=== PATIENT | female | born 1965 | race African-American/Black ===

== ENCOUNTER 2024-07-26 16:47 | Emergency (ER) | payer BC, SELFPAY ==
--- NOTE | ~2024-07-26 | CT_ITS ---
EXAMINATION: CT HEAD WITHOUT CONTRAST CLINICAL INFORMATION: Headache. On Lovenox. Rule out bleed. COMPARISON: None available. TECHNIQUE: Contiguous axial imaging was performed from the skull base to vertex without intravenous administration of contrast. This CT examination was performed using dose optimization techniques as appropriate, variously including the following: *Automated exposure control *Adjustment of mA and/or kV according to patient size (this includes techniques or standardized protocols for targeted exams where dose is matched to indication/reason for exam; i.e. extremities or head) *Use of iterative reconstruction technique DLP: 709 FINDINGS: There is no acute intra-axial, extra-axial bleed, masses or midline shift. There is no acute infarction evolution. There is no edema. Dense midline dural calcification is noted. The lateral ventricles are symmetrical in size and configuration without enlargement. Bone windows reveal no calvarial abnormality. There is no scalp soft tissue abnormality. Mild deformity of the left lamina papyracea likely from old injury is noted. The paranasal sinuses and mastoid air cells are well-aerated. CT/CT Head for ICH IMPRESSION: No acute intracranial process seen.. Electronically signed by: Lewis Lee MD 07/27/2024 04:00 PM EDT
--- NOTE | ~2024-07-26 | NM_ITS ---
EXAMINATION: NM LUNG PERFUSION HISTORY: CP, SOB, R ankle surgery 07/15 ?PE. TECHNIQUE: A pulmonary perfusion scan was performed following intravenous administration of 4.0 mCi technetium 99m-MAA. Images were obtained in multiple projections. COMPARISON: Correlation is made with AP and lateral views of the chest dated 07/26/2024. FINDINGS: There are tiny subsegmental perfusion defects involving the superior segments of both lower lobes. No segmental or large segmental perfusion defects are identified. Findings are consistent with a very low probability for pulmonary emboli. NM/NM pul perfusion IMPRESSION: Very low probability for pulmonary emboli. Electronically signed by: Jayjay Rothman MD 07/27/2024 10:10 AM EDT
--- NOTE | ~2024-07-26 | XR_ITS ---
CLINICAL HISTORY: cp, SOB 2 view chest x-ray Comparison: None Findings: Lungs are clear without acute infiltrates. No pneumothorax. Heart size normal. No acute bony abnormalities. Impression: No acute processes This document has been electronically signed by: Stanislaw Rodas MD on 07/27/2024 00:20:00
[2024-07-26 16:52] VITALS: BP 160/64; PULSE 108; RESP 18; TEMP 36.8; O2SAT 99; BMI 29.8
--- NOTE | 2024-07-26 16:53 | ED.GENADULT ---
HPI - General Adult General Chief complaint: General Medical Stated complaint: headache,chest heaviness postop 07/21 Time Seen by Provider: 07/26/24 21:09 Source: patient Mode of arrival: ambulatory Limitations: no limitations History of Present Illness ED Provider: india riley np HPI narrative: patient is a 59-year-old female With past medical history of type 2 diabetes, tachycardia, surgeon deficiency, GERD, fibromyalgia who presents emergency department for evaluation. On 07/15/2024 she underwent ?ORIF 3 broken bones with pins and plates at [facility] (records pending). she has traveled locally she has been time with her son. She had a telehealth appointment with her surgeon today who advised that she come to the emergency department for evaluation of a blood clot. She reports that yesterday she began having a bilateral frontal headache with bilateral eye pain that is brought on when she is looking at her phone or the television. She does admit to a remote history of migraine headaches. She tried meloxicam for this but got no relief. She ultimately ended up taking her oxycodone and was able to sleep. However in the evening she was still feeling nauseous and with the same headache, she additionally was experiencing diffuse anterior chest pain described as a heaviness. This was felt while sitting and resting and stayed consistent throughout the day described as annoying in her shortness breath is feeling generally winded. she states she has been compliant with Lovenox 40 mg daily since her surgery. She denies overt worsening of pain to the right lower extremity/ ankle, denies any tightness or pressure like sensation beneath the splint that she is currently wearing. No numbness tingling or cold sensation to the foot. Related Data Home Medications ?Medication ?Instructions ?Recorded ?Confirmed acetaminophen 500 mg tablet 1,000 mg PO Q6H PRN Pain 07/27/24 07/27/24 atorvastatin 20 mg tablet 20 mg PO DAILY 07/27/24 07/27/24 diltiazem HCl 120 mg 120 mg PO DAILY 07/27/24 07/27/24 capsule,extended release 24 hr, controlled (DILT-XR) enoxaparin 40 mg/0.4 mL 40 mg subcut DAILY 07/27/24 07/27/24 subcutaneous syringe famotidine 20 mg tablet 20 mg PO BID 07/27/24 07/27/24 insulin glargine 100 unit/mL (3 30 unit subcut BEDTIME 07/27/24 07/27/24 mL) subcutaneous pen (Basaglar KwikPen U-100 Insulin) oxycodone 5 mg tablet 5 mg PO Q6-8H PRN pain 07/27/24 07/27/24 pantoprazole 40 mg tablet,delayed 40 mg PO DAILY@0630 07/27/24 07/27/24 release polyethylene glycol 3350 17 17 g PO DAILY PRN Constipation 07/27/24 07/27/24 gram/dose oral powder semaglutide 0.25 mg or 0.5 mg (2 0.5 mg subcut MO 07/27/24 07/27/24 mg/3 mL) subcutaneous pen injector (Ozempic) sennosides 8.6 mg tablet (senna) 8.6 mg PO BEDTIME 07/27/24 07/27/24 sertraline 50 mg tablet 50 mg PO DAILY 07/27/24 07/27/24 Previous Rx's ?Medication ?Instructions ?Recorded apixaban 5 mg (74 tabs) tablets in 5 mg PO BID #74 ea 07/27/24 a dose pack ([employer] DVT-PE Treat 30D Start) oxycodone 5 mg tablet 5 mg PO Q4H PRN pain #20 tabs 07/27/24 Allergies Allergy/AdvReac Type Severity Reaction Status Date / Time glipizide Allergy Gastrointestinal Verified 07/26/24 17:01 Upset Iodinated Contrast Media Allergy Difficulty Verified 07/26/24 17:01 [Contrast Dye] Breathing latex Allergy Rash Verified 07/26/24 17:01 meperidine [From Demerol] Allergy Gastrointestinal Verified 07/26/24 17:01 Upset metformin Allergy Gastrointestinal Verified 07/26/24 17:01 Upset Review of Systems Review of Systems: Yes all other systems are reviewed and are negative PMFSH Past Medical History Attestation statement: The following information was validated with the patient. Source: old records reviewed Physical Exam ED Vital Signs: Vital Signs - 24 hr 07/26/24 19:39 07/27/24 00:15 07/27/24 04:46 Temperature 98.5 F 98.0 F 98.4 F Pulse Rate 81 89 87 Respiratory Rate 19 16 21 H Blood Pressure 158/82 H 147/77 H 132/74 Pulse Oximetry 98 97 99 Oxygen Delivery Method Room Air Room Air Room Air 07/27/24 08:31 07/27/24 10:10 07/27/24 17:03 Temperature 98.2 F 98.8 F 97.4 F Pulse Rate 78 76 83 Respiratory Rate 16 18 14 Blood Pressure 133/69 141/64 H 136/70 Pulse Oximetry 100 98 99 Oxygen Delivery Method Room Air Room Air Room Air 07/27/24 17:53 Temperature 97.4 F Pulse Rate 98 Respiratory Rate 16 Blood Pressure 138/78 Pulse Oximetry 97 Oxygen Delivery Method Room Air BMI result Body Mass Index 29.8 Appearance: Alert.?Oriented to person, place and time. No acute distress.?Normal affect. Eyes: Pupils equal, round and reactive to light.? EOMI. No nystagmus. ENT: Pharynx normal.?? Neck: Normal inspection.? Neck supple.?? Full range of motion. CVS: Heart sounds normal. Normal heart rate and rhythm.? Pulses normal.?? Respiratory: No respiratory distress.? Lung sounds clear to auscultation bilaterally?? Abdomen: Soft and non-tender. Normoactive bowel sounds. Skin: Skin warm and dry.? Normal skin color.? Extremities: No lower extremity edema.? CMS is intact to the digits of the right toe. Splint is intact. No pain upon palpation to the proximal right calf. Neuro: Moves all extremities spontaneously. Sensation intact bilaterally. CN II-XII intact. No focal neuro deficits. Ambulates with normal steady gait. Course Course Course Narrative: This is an RME: Additional HPI, ROS, PE not included below will be deferred to primary provider. RME assessment and note performed by: Natalya Whitlock PA-C This is a [id number]-female, with a hx of diabetes type 2 on insulin, tachycardia, serotonin deficiency, GERD, fibromyalgia, who presents to the ER accompanied by her son with concerns for chest heaviness/discomfort and SOB on exertion and headache which started yesterday. She states that she had a telemed visit with her orthopedic surgeon today and was told to come to the ED to be evaluated. On July 15 she had surgery on her right ankle in [facility]. Currently on Lovenox due to surgery. Plan: Labs, viral swabs, ekg, further ER eval needed. Reevaluation(s) Reevaluation #1: 07/28/2027 at 17:35 hours, Dr. Britton Nagel's note: Physician observation ended at 17:35 hours. I assumed care of this patient from my colleague, Dr. Keri Chris at 07:00 hours. 59-year-old female with past medical history of type 2 diabetes, tachycardia, surgeon deficiency, GERD, fibromyalgia, beta thalassemia who presents emergency department for evaluation chest pain and dyspnea on exertion. The patient had a right ankle fracture repaired on 07/15/[address] [facility]. The patient's son lives here in the [facility] therefore she came to [place] to stay with her son so that he can help her recover. The patient is receiving Lovenox subQ 40 mg daily as prophylaxis for DVT. Patient presented for evaluation of bilateral frontal headaches, she has a remote history of migraines. Patient was taking meloxicam and oxycodone with no relief of her headache. Patient states she was experiencing intermittent chest heaviness. She denied shortness of breath at rest but she did develop significant dyspnea on exertion using her knee scooter which was new. She states she had chills but no fever. Patient has a contrast allergy therefore she could not get a CT pulmonary angiogram was kept in the emergency department overnight for a ventilation/perfusion scan. Patient's WBC was normal, patient has a microcytic anemia which is consistent with a beta thalassemia. Patient's D-dimer was elevated. I did review the radiologist's findings and impression below. EXAMINATION: NM LUNG PERFUSION FINDINGS: There are tiny subsegmental perfusion defects involving the superior segments of both lower lobes. No segmental or large segmental perfusion defects are identified. Findings are consistent with a very low probability for pulmonary emboli. IMPRESSION: Very low probability for pulmonary emboli. Electronically signed by: Jayjay Rothman MD 07/27/2024 Given the patient's recent surgery, elevated D-dimer, chest pain and new dyspnea on exertion, this patient is at very high-risk for PE and a ?very low probability?interpretation of the perfusion scan does not sufficiently rule out pulmonary embolism. Also, the radiologist did note tiny sub segmental perfusion defects involving the superior segment of both lower lobes which could represent very small pulmonary emboli. Given the substantial risk of harm of a large pulmonary embolism, I did discuss treatment with Ted with the patient and she agrees with this plan. Patient was advised to stop taking her Lovenox and to avoid NSAIDs including meloxicam. She was given a prescription for Eliquis 10 mg b.i.d. for 7 days then 5 mg b.i.d. to complete a 1 month course. She was given her 1st dose of Eliquis 10 mg orally here in the emergency department. I told the patient that she should not stop this medication until either a paper final inspector or a fashion consultant selling advises her to do so. Patient was also running out of her oxycodone for her fracture pain therefore she was given a prescription for oxycodone 5 mg every 4 hours as needed for pain dispense 20 tablets. Patient had increased pain prior to discharge and was given oxycodone 5 mg orally. Patient was given printed and verbal instructions and discharged home. The patient did have a severe headache on presentation, she does have a history of migraines, given the fact that she was on Lovenox I wanted to exclude an intracranial bleed prior to starting Eliquis. CT scan of the brain without IV contrast was obtained and there was no evidence for intracranial bleeding I did review the radiology reading below: EXAMINATION: CT HEAD WITHOUT CONTRAST CLINICAL INFORMATION: Headache. On Lovenox. Rule out bleed. COMPARISON: None available. FINDINGS: There is no acute intra-axial, extra-axial bleed, masses or midline shift. There is no acute infarction evolution. There is no edema. Dense midline dural calcification is noted. The lateral ventricles are symmetrical in size and configuration without enlargement. Bone windows reveal no calvarial abnormality. There is no scalp soft tissue abnormality. Mild deformity of the left lamina papyracea likely from old injury is noted. The paranasal sinuses and mastoid air cells are well-aerated. IMPRESSION: No acute intracranial process seen.. Electronically signed by: Lewis Lee MD 07/27/2024 04:00 PM EDT Medications Administered Discontinued Medications Generic Name Dose Route Start Last Admin Trade Name Freq PRN Reason Stop Dose Admin Apixaban 10 mg 07/27/24 17:10 07/27/24 17:20 Apixaban 5 Mg Tablet PO 07/27/24 17:11 10 mg ONCE ONE Administration Diphenhydramine HCl 25 mg 07/26/24 22:03 07/26/24 22:30 Diphenhydramine Hcl 50 Mg/Ml Vial IVPUSH 07/26/24 22:04 25 mg ONCE ONE Administration Enoxaparin Sodium 80 mg 07/26/24 23:16 07/26/24 23:45 Enoxaparin Sodium 80 Mg/0.8 Ml Syringe 1 mg/kg (80 mg) 07/26/24 23:17 80 mg SUBCUT Administration ONCE ONE Sodium Chloride 1,000 mls @ 999 mls/hr 07/26/24 22:15 07/27/24 00:13 Ns IV 07/26/24 23:15 Infused .Q1H1M GONZALEZ Infusion Ketorolac Tromethamine 15 mg 07/26/24 22:03 07/26/24 22:31 Ketorolac Tromethamine 15 Mg/Ml Vial IVPUSH 07/26/24 22:04 15 mg ONCE ONE Administration Metoclopramide HCl 10 mg 07/26/24 22:03 07/26/24 22:30 Metoclopramide Hcl 10 Mg/2 Ml Vial IVPUSH 07/26/24 22:04 10 mg ONCE ONE Administration Oxycodone HCl 5 mg 07/27/24 04:42 07/27/24 04:47 Oxycodone Hcl Immed Release 5 Mg Tablet PO 07/27/24 04:43 5 mg ONCE ONE Administration Oxycodone HCl 5 mg 07/27/24 13:11 07/27/24 13:16 Oxycodone Hcl Immed Release 5 Mg Tablet PO 07/27/24 13:12 5 mg ONCE STA Administration Oxycodone HCl 5 mg 07/27/24 17:45 07/27/24 17:53 Oxycodone Hcl Immed Release 5 Mg Tablet PO 07/27/24 17:46 5 mg ONCE STA Administration Medical Decision Making Medical Decision Making [facility] Narrative: patient is a 59-year-old female With past medical history of type 2 diabetes, tachycardia, surgeon deficiency, GERD, fibromyalgia Who presents emergency department for evaluation of headache chest pain and shortness of breath as per HPI onset 2 days ago. Had recent right ankle surgery 07/15/2024. On evaluation her history and physical exam regarding her headache or most concerning for migraine-type headache with photophobia, no focal neurological deficits, NIH stroke scale of 0. She will receive a migraine cocktail for this. Regarding her chest heaviness and shortness of breath, she has an elevated D- dimer at 567, in the setting of recent ankle surgery, concern for potential pulmonary embolism unfortunately she has an allergy to contrast dye therefore CT angiogram can not be obtained. She last took her Lovenox 40 mg this morning, planning for therapeutic dosing at this time patient will receive Lovenox 80 mg subcutaneous and obtain a V/Q scan in the morning with service is available. Currently she is not hypoxic, not tachypneic, but did arrived to emergency department mildly tachycardic. Serum labs reveal CBC without leukocytosis, anemia, or thrombocytopenia. No electrolyte derangement. No LINETTE. high sensitive troponin within normal range , EKG revealing normal sinus rhythm with ventricular rate of 99, QTC 449, no ST-elevation, not consistent with ACS. Viral serologies negative. Differential Diagnosis Differential Diagnoses: The differential diagnosis associated with the presentation includes ( see narrative above) Admission/Observation Consideration of admission/observation: Escalation of care including admission/observation considered Placed in physician observation at 22:00 on 07/26/2024 pending V/Q scan and disposition. Lab Data MDM Lab Attestation statement: I reviewed the patient's lab results. ( see narrative above) 07/26/24 17:26 07/26/24 17:26 Labs: Lab Results 07/26/24 07/27/24 07/27/24 Range/Units 17:26 10:11 16:35 WBC 7.6 (4.8-10.8) X10*3/uL RBC 5.32 (4.20-5.50) X10*6/uL Hgb 12.1 (12.0-16.0) g/dl Hct 39.7 (37.0-47.0) % MCV 74.6 L (80.0-98.0) fL MCH 22.7 L (27.0-33.0) pg MCHC 30.5 L (31.0-35.0) g/dl RDW 15.7 (11.0-16.0) % Plt Count 358 (160-400) X10*3/uL MPV 9.9 (9.4-12.3) fL Immature Gran % (Auto) 0.4 (0.0-0.4) % Neut % (Auto) 45.9 (45-73) % Lymph % (Auto) 47.1 H (20-40) % [place] % (Auto) 5.5 (2-11) % Eos % (Auto) 0.7 (0-4) % Baso % (Auto) 0.4 (0-2) % Lymph # (Auto) 3.6 (1.2-4.9) X10*3/uL [place] # (Auto) 0.4 (0.1-1.2) X10*3/uL Eos # (Auto) 0.1 (0.0-0.4) X10*3/uL Baso # (Auto) 0.0 (0.0-0.2) X10*3/uL Abs Immat Gran (auto) 0.03 (0.00-0.03) X10*3/uL Absolute Neuts (auto) 3.5 (2.0-8.3) x10*3/uL Absolute Nucleated RBC 0.020 H (0.0-0.012) X10*3/uL Nucleated RBC % (auto) 0.3 H (0.0-0.2) /100WBC PT 13.5 H (10.9-12.4) SEC INR 1.2 H (0.9-1.1) D-Dimer High Sensitivty 567 NG/ML Sodium 141 (135-145) mmol/L Potassium 3.6 (3.3-5.1) mmol/L Chloride 108 (96-108) mmol/L Carbon Dioxide 25 (22-29) mmol/L Anion Gap 12 (12-20) BUN 13 (9-16) mg/dL Creatinine 0.76 (0.5-1.4) mg/dL Estim Creat Clear Calc 76.9 Estimated GFR > 60 POC Glucose 94 101 (60-115) mg/dL Random Glucose 167 H (60-115) mg/dL Calcium 9.5 (8.4-10.2) mg/dL Magnesium 1.7 (1.6-2.6) mg/dL Total Bilirubin 0.5 (0.0-1.0) mg/dL Direct Bilirubin 0.2 (0.0-0.5) mg/dL AST 31 (5-31) U/L ALT 112 H (0-31) U/L Alkaline Phosphatase 172 H (39-117) U/L Troponin I High Sens 2.9 (<3.5-17.0) ng/L Total Protein 7.5 (6.5-8.0) g/dL Albumin 4.1 (3.5-5.0) g/dL Lipase 25 (8-78) U/L Influenza Type A (PCR) NEGATIVE (Negative) Influenza Type B (PCR) NEGATIVE (Negative) RSV RNA Qual (PCR) NEGATIVE (Negative) SARS-CoV-2 RNA (RT-PCR) NEGATIVE (Negative) Radiology Impression Discussion of test interpretation with radiology: I have reviewed the radiologist's reading. Independent Historian Clinical information obtained from an independent historian. History obtained from or confirmed by: Other ( son) Tests considered The following testing was considered but not selected: see narrative above Chronic Conditions Patient?s care impacted by: Other ( see narrative above) Critical Care Time Critical Care Time Critical Care Time: Yes Total Critical Care Time: 40 Attestation: I personally attest to this critical care time spent taking care of the patient exclusive of all other billable procedures was approximately 40 minutes including initial evaluation of patient, ordering tests, x-ray interpretation, EKG interpretation, medical consultation, documentation, re-evaluation. Discharge Plan Discharge Clinical Impression: Pulmonary embolism, Acute dyspnea Patient Disposition: Home, Self-Care Instructions: Pulmonary Embolism (ED) Additional Instructions: Your complete blood count revealed a normal hemoglobin and hematocrit with a low MCV. This is probably more consistent with beta thalassemia and not polycythemia vera and does not put you at increased risk for blood clots.. Your D-dimer (a marker of forming blood clots and breaking up blood clots) was elevated at 567 with our normal range being less than 230. Your comprehensive metabolic panel was unremarkable. Your chest x-ray revealed no significant abnormalities to explain your shortness of breath with exertion. The CT scan of your brain did not reveal any bleeding in your brain which is reassuring. Your headache was most likely caused by a migraine. Your pulmonary perfusion scan revealed tiny subsegmental perfusion defects involving the superior segment of both lower lobes of your lungs and the radiologist determined that this was a very low probability for pulmonary embolism. Given your recent surgery, your elevated D-dimer and your new shortness of breath with exertion, you are at high-risk for pulmonary embolism and a ?very low probability ?perfusion scan does not excluded the possibility of a pulmonary embolism. Given the high-risk potential of blood clots to your lung causing significant harm to you, I am starting you on Eliquis, please follow the directions on the prescribed as discussed. You need to remain on Eliquis until a paper final inspector or fashion consultant selling tell you you can stop this medication. Stop the Lovenox Avoid NSAIDs (Advil, Motrin, Alleve, ibuprofen, naproxen, meloxicam, aspirin) while you are taking Eliquis. Take Tylenol (acetaminophen) 500 mg pills, 2 pills every 4-6 hours as needed for pain. For pain not relieved by Tylenol take oxycodone 5 mg pills, 1 pill every 4 hours as needed for pain. Do not drive or work while taking this medication since they can cause sleepiness. Oxycodone is a narcotic medication that can be addicting. If you are concerned about addiction you can ask the pharmacist for less pills or do not get this prescription filled. Follow-up with your doctor in 2 days. Please return to the emergency department if your symptoms get worse or if you develop any symptoms that are concerning to you. Prescriptions: New Eliquis DVT-PE Treat 30D Start 5 mg (74 tabs) tablets,dose pack 5 mg PO BID Qty: 74 0RF oxycodone 5 mg tablet 5 mg PO Q4H PRN (Reason: pain) Qty: 20 0RF Rx Instructions: Partial Fill upon patient request. No Action sennosides [senna] 8.6 mg tablet 8.6 mg PO BEDTIME acetaminophen 500 mg tablet 1,000 mg PO Q6H PRN (Reason: Pain) famotidine 20 mg tablet 20 mg PO BID pantoprazole 40 mg tablet,delayed release (DR/EC) 40 mg PO DAILY@0630 diltiazem HCl [DILT-XR] 120 mg capsule,ext.rel 24h degradable 120 mg PO DAILY polyethylene glycol 3350 17 gram/dose powder 17 g PO DAILY PRN (Reason: Constipation) oxycodone 5 mg tablet 5 mg PO Q6-8H PRN (Reason: pain) enoxaparin 40 mg/0.4 mL syringe 40 mg subcut DAILY Ozempic 0.25 mg or 0.5 mg (2 mg/3 mL) pen injector 0.5 mg subcut MO atorvastatin 20 mg tablet 20 mg PO DAILY sertraline 50 mg tablet 50 mg PO DAILY insulin glargine [Basaglar KwikPen U-100 Insulin] 100 unit/mL (3 mL) insulin pen 30 unit subcut BEDTIME Interventions: ED Discharge Assessment Last Done: 07/27/24 17:53 Discharge Date/Time: 07/27/24 18:16 Print Language: Danish
--- NOTE | 2024-07-26 17:03 | ECG_ITS ---
Test Reason : cp Blood Pressure : */* mmHG Vent. Rate : 99 BPM Atrial Rate : 99 BPM P-R Int : 138 ms QRS Dur : 74 ms QT Int : 350 ms P-R-T Axes : 74 23 38 degrees QTcB Int : 449 ms Normal sinus rhythm Normal ECG No previous ECGs available Referred By: Natalya Whitlock Electronically Signed By: DENITA MC
[2024-07-26 17:32] LABS: MANUAL DIFF FLAG NO
[2024-07-26 17:51] LABS: Alanine Aminotransferase 112 U/L (0-31); Albumin Level 4.1 g/dL (3.5-5.0); Alkaline Phosphatase 172 U/L (39-117); Anion Gap 12 (12-20); Aspartate Amino Transferase 31 U/L (5-31); Bilirubin Direct 0.2 mg/dL (0.0-0.5); Bilirubin Total 0.5 mg/dL (0.0-1.0); Blood Urea Nitrogen 13 mg/dL (9-16); Calcium 9.5 mg/dL (8.4-10.2); Carbon Dioxide 25 mmol/L (22-29); Chloride 108 mmol/L (96-108); Creatinine Clr Calc Pharmacy 76.9; Estimated Glomerular Filt Rate > 60; Glucose Random 167 mg/dL (60-115); Magnesium 1.7 mg/dL (1.6-2.6); Potassium 3.6 mmol/L (3.3-5.1); Sodium 141 mmol/L (135-145); Total Protein 7.5 g/dL (6.5-8.0)
[2024-07-26 17:58] LABS: Troponin-I High Sensitivity 2.9 ng/L (<3.5-17.0)
[2024-07-26 18:05] LABS: INTERNATIONAL NORM RATIO 1.2 (0.9-1.1); Prothrombin Time 13.5 SEC (10.9-12.4)
[2024-07-26 18:12] LABS: Influenza A PCR NEGATIVE (Negative); Influenza B PCR NEGATIVE (Negative); Resp Syncy Virus RNA Qual PCR NEGATIVE (Negative); SARS COV2 PCR INHOUSE NEGATIVE (Negative)
[2024-07-26 18:35] LABS: Basophils Percent Auto 0.4 % (0-2); Eosinophils Absolute Auto 0.1 X10*3/uL (0.0-0.4); Eosinophils Percent Auto 0.7 % (0-4); Hematocrit 39.7 % (37.0-47.0); Hemoglobin 12.1 g/dl (12.0-16.0); Imm Gran Abs Auto 0.03 X10*3/uL (0.00-0.03); Imm Gran Pct Auto 0.4 % (0.0-0.4); Lymphocytes Absolute Auto 3.6 X10*3/uL (1.2-4.9); Lymphocytes Percent Auto 47.1 % (20-40); Mean Corpuscular HGB Conc 30.5 g/dl (31.0-35.0); Mean Corpuscular Hemoglobin 22.7 pg (27.0-33.0); Mean Corpuscular Volume 74.6 fL (80.0-98.0); Mean Platelet Volume 9.9 fL (9.4-12.3); Monocytes Absolute Auto 0.4 X10*3/uL (0.1-1.2); Monocytes Percent Auto 5.5 % (2-11); NRBC Pct Auto 0.3 /100WBC (0.0-0.2); Neutrophils Absolute Auto 3.5 x10*3/uL (2.0-8.3); Neutrophils Percent Auto 45.9 % (45-73); Platelet Count 358 X10*3/uL (160-400); Red Blood Count 5.32 X10*6/uL (4.20-5.50); Red Cell Distribution Width 15.7 % (11.0-16.0); White Blood Count 7.6 X10*3/uL (4.8-10.8)
[2024-07-26 18:53] LABS: Lipase 25 U/L (8-78)
[2024-07-26 19:39] VITALS: BP 158/82; PULSE 81; RESP 19; TEMP 36.9; O2SAT 98
--- NOTE | 2024-07-26 19:43 | PC.NURSE ---
patient is here visiting son from [place]. had surgery recently. spoke with provider today and was told to come to ED for evalution due to headaches since yesterday. also reports nausea and some blurry vision. right foot pulse positive. has been taking Lovenox and all other meds as prescribed since surgery. waiting to be seen by provider.
--- OUTSIDE RECORDS SUMMARY | 2024-07-26 19:59 | XMS_ITS | Encounter Summary ---
Author Organization [facility] Address [address] [place] [address] Care Team Providers Care Stroboroma Operator Name Role Phone Isaac Kapoor MD Primary Care Provider Ever Mccall DO Unavailable [phone] Yair Connelly MD Unavailable [phone] Reason for Visit * Reason Onset Date Comments Medication Refill 06/11/2022 Encounter Details Date Type Department Care Team (Late st Contact Info) Description 06/11/2022 Refill [facility] - [address] [id number] Isaac Kapoor MD [address] [place] [address] [address] [place] [address] Type 2 diabetes mellitus without complication, without long-term current use of insulin Social History Tobacco Use Types Packs/Day Years Used Date Smoking Tobacco: Former Cigarettes Q uit: 05/23/2019 Passive Smoke Exposure: Never Smokeless Tobacco: Never Alcohol Use Standard Drinks/Week Comments Not Currently 0 (1 standard drink = 0.6 oz pur e alcohol) Social Connection and Isolat ion Panel [NHANES] Answer Date Recorded In a typical week, how many times do you talk on the phone with family, friends, or neighbors? More than three times a week 01/23/2022 How often do you get togethe r with friends or relatives? Patient declined 01/23/2022 How often do you attend chur ch or yazdanism services? Never 01/23/2022 Do you belong to any clubs o r organizations such as moravian groups, unions, fraternal or athletic groups, or school groups? No 01/23/2022 How often do you attend meet ings of the clubs or organizations you belong to? Patient declined 01/23/2022 Are you , , di vorced, , never , or living with a partner? 01/23/2022 AUDIT-C Answer Date Recorded Q1: How often do you have a drink containing alc ohol? Monthly or less 01/23/2022 Q2: How many drinks containi ng alcohol do you have on a typical day when you are drinking? 1 or 2 01/23/2022 Q3: How often do you have si x or more drinks on one occasion? Never 01/23/2022 Overall Financial Resource Strain (CARDIA) Answe r Date Recorded How hard is it for you to pa y for the very basics like food, housing, medical care, and heating? Somewhat hard 01/23/2022 PHQ-2 Answer Date Recorded PHQ-2 Score 0 05/01/2022 [facility] - Occupational Stress Questionnaire Answer Date Recorded Do you feel stress - tense, restless, nervous, or anxious, or unable to sleep at night because your mind is troubled all the time - these days? To some extent 01/23/2022 Exercise Vital Sign Answer Date Recorde d On average, how many days pe r week do you engage in moderate to strenuous exercise (like a brisk walk)? 3 days Minutes of Exercise per Session Not on file 01/23/2022 Hunger Vital Sign Answer Date Recorded Within the past 12 months, y ou worried that your food would run out before you got the money to buy more. Never true 01/24/20 22 Within the past 12 months, t he food you bought just didn't last and you didn't have money to get more. Never true 01/23/2022 PRAPARE - Transportation Answer Date Re corded In the past 12 months, has l ack of transportation kept you from medical appointments or from getting medications? No 12/27 In the past 12 months, has l ack of transportation kept you from meetings, work, or from getting things needed for daily living? No 01/23/2022 Housing Stability Vital Sign Answer Johnnie e Recorded In the last 12 months, was t here a time when you were not able to pay the mortgage or rent on time? Yes 01/23/2022 In the last 12 months, how many places have you lived? 1 01/23/2022 In the last 12 months, was t here a time when you did not have a steady place to sleep or slept in a senior care (including now)? No 01/23/2022 Comments No Sex and Gender Information Value Date Recorded Sex Assigned at Female 06/18/2021 8:19 AM EDT Legal Sex Female 5:14 AM EST Gender Identity Female 06/18/2021 8:19 AM EDT Sexual Orientation Straight 06/18/2021 8: 19 AM EDT COVID-19 Exposure Response Date Recorded In the last 10 days, have yo u been in contact with someone who was confirmed or suspected to have Coronavirus/COVID-19? No / Unsure 06/12/2022 11:40 AM EDT documented as of this encounter Miscellaneous Notes * Telephone Encounter - Soledad Bolden - 06/11/2022 12:38 PM EDT Last Visit: 05/01/2022 Upcoming Visit: 06/17/2022 Front: n/a Lab Results Component Value Date HBA1C 7.3 (H) 11/01/2021 LDLC 90 11/01/2021 MALRN 0.60 11/01/2021 TSH 1.15 11/01/2021 GLU 212 (H) 11/01/2021 CA 9.2 11/01/2021 NA 141 11/01/2021 K 4.0 11/01/2021 CL 105 11/01/2021 BUN 14 11/01/2021 CREAT 0.8 11/01/2021 AST 24 11/01/2021 BP Readings from Last 1 Encounters: 04/03/22 (!) 152/88 documented in this encounter Plan of Treatment Upcoming Encounters Date Type Department Care Team (Late st Contact Info) Description 08/24/2024 9:00 AM EDT Office Visit [facility] [place] [address] [place] [address] Isaac Kapoor MD [address] [phone] 10/22/2024 11:30 AM EDT Office Visit [facility] [address] [address] Ever Mccall DO [address] [address] documented as of this encounter Visit Diagnoses Diagnosis Type 2 diabetes mellitus without complication, without long-term current use of insulin ([facility] HCC Code) documented in this encounter Care Teams Stroboroma Operator Relationship Specialty Start Date End Date Isaac Kapoor MD [address] [place] [phone] PCP - General 11/12/21 Ever Mccall DO [address] [address] PCP - Endocrinology Endocrinology, Diabetes, Metabolism-Internal Medicine 06/12/22 Yair Connelly MD [address] [facility] [address] [place] [address] PCP - Cardiology Cardiovascular Disease 03/12/23 documented as of this encounter
[2024-07-26] MEDS: Metoclopramide HCl 10 MG/2 ML VIAL IVPUSH (22:30)
[2024-07-26] MEDS: diphenhydrAMINE HCL 50 MG/ML VIAL 25 MG IVPUSH (22:30)
[2024-07-26] MEDS: Ketorolac Tromethamine 15 MG/ML VIAL IVPUSH (22:31)
[2024-07-26] MEDS: 0.9 % Sodium Chloride 1,000 ML 999 ML IV (22:31)
[2024-07-26 22:55] LABS: D Dimer High Sensitivity 567 NG/ML
[2024-07-26] MEDS: Enoxaparin Sodium 80 MG/0.8 ML SYRINGE SUBCUT (23:45)
[2024-07-27 00:15] VITALS: BP 147/77; PULSE 89; RESP 16; TEMP 36.7; O2SAT 97
[2024-07-27 04:46] VITALS: BP 132/74; PULSE 87; RESP 21; TEMP 36.9; O2SAT 99
[2024-07-27] MEDS: oxyCODONE HCl Immed Release 5 MG TABLET PO ×3 (04:47→17:53)
--- NOTE | 2024-07-27 07:03 | PC.NURSE ---
This RN assumed care of patient @ 0700. Patient A&O x 3. Right ankle remains in cast +CMS. Pain rated 4/10, patient was given oxycodone approx an hour ago. Denies headache at this time. Denies SOB. VSS and up to date. CXR unremarkable. Plan of care on going.
[2024-07-27 08:31] VITALS: BP 133/69; PULSE 78; RESP 16; TEMP 36.8; O2SAT 100
--- NOTE | 2024-07-27 09:33 | PC.NURSE ---
Patient at nuclear medicine at this time.
[2024-07-27 10:10] VITALS: BP 141/64; PULSE 76; RESP 18; TEMP 37.1; O2SAT 98
[2024-07-27 10:15] LABS: Glucose, Whole Blood 94 mg/dL (60-115)
--- NOTE | 2024-07-27 10:41 | PC.NURSE ---
Pulmonary perfusion test completed results Findings are consistent with a very low probability for pulmonary emboli
[2024-07-27 16:38] LABS: Glucose, Whole Blood 101 mg/dL (60-115)
--- NOTE | 2024-07-27 16:41 | PHA.MEDREC ---
Addendum entered by Alexis Felix [facility] 07/27/24 17:00: Med rec reviewed Original Note: Pharmacy Consult ? Medication Reconciliation Pharmacy has completed the medication reconciliation. Spoke with pt and she confirmed her medications. Pt confirmed she is still taking Sertraline 50mg tabs 1 QD; last filled in claims was 12/31/2023 for 90, pt states she has been going back and forth from [place] and here in [place] and doesn't remember where it was last filled. Pt confimred the Enoxaparin 40mg injection once daily and stated she doesn't remember if she took it yesterday, but knows she took it 2 days ago.
[2024-07-27 17:03] VITALS: BP 136/70; PULSE 83; RESP 14; TEMP 36.3; O2SAT 99
[2024-07-27] MEDS: Apixaban 5 MG TABLET 10 MG PO (17:20)
--- NOTE | 2024-07-27 17:21 | PC.NURSE ---
First dose of eliquis administered
[2024-07-27 17:53] VITALS: BP 138/78; PULSE 98; RESP 16; TEMP 36.3; O2SAT 97
== END 2024-07-27 18:16 | disposition home or self-care (01) ==
PROVIDERS: Emergency Medicine; Nurse Practitioner Family; Physician Assistant Medical; Emergency Provider Emergency Medicine Emergency Medical Services
DX: I26.99 Other pulmonary embolism without acute cor pulmonale (principal); R06.00 Dyspnea, unspecified; R06.02 Shortness of breath; R07.9 Chest pain, unspecified; Z98.890 Other specified postprocedural states; Z03.818 Encounter for observation for suspected exposure to other biological agents ruled out; E11.9 Type 2 diabetes mellitus without complications
CPT/HCPCS: 0241U; 70450; 71046; 78580; 80048; 80076; 82947; 83690; 83735; 84484; 85025; 85379; 85610; 93005; 96361; 96372; 96374; 96375; 99284; 99285; A9540; J1200; J1650; J1885; J2765

== ENCOUNTER → 2024-07-26 17:03 | Outpatient (BNV) | payer BC, SELFPAY | PROVIDERS: Emergency Provider Emergency Medicine Emergency Medical Services; Visit Provider Internal Medicine | DX: R07.9 Chest pain, unspecified (principal) | CPT/HCPCS: 93010 ==

== ENCOUNTER → 2024-07-26 23:14 | Outpatient (BNV) | payer BC, SELFPAY | PROVIDERS: Emergency Provider Emergency Medicine; Visit Provider Radiology Diagnostic Radiology | DX: R07.9 Chest pain, unspecified (principal); R06.02 Shortness of breath | CPT/HCPCS: 71046 ==

== ENCOUNTER → 2024-07-27 07:00 | Outpatient (BNV) | payer BC, SELFPAY | PROVIDERS: Emergency Provider Emergency Medicine; Visit Provider Radiology Diagnostic Radiology | DX: R51.9 Headache, unspecified (principal); R06.02 Shortness of breath; R07.9 Chest pain, unspecified | CPT/HCPCS: 70450; 78580 ==